=== PATIENT | male | born 1945 | race Caucasian/White ===

== ENCOUNTER → 2016-04-15 | Day surgery (SDC) | payer OTHER ==
[~2016-04-15] MED LIST: BUPIVACAINE/EPINEPHRINE 0.5% PF 30 ML VIAL ONE; LACTATED RINGER'S 1,000 ML BAG IV ONE; LIDOCAINE 1%/EPINEPHrine 1:100,000 SOLN 30 ML VIAL ONE; MIDAZOLAM HCL 2 MG/2 ML VIAL ONE; ONDANSETRON HCL 4 MG/2 ML VIAL IV PUSH ONE; PROPOFOL 200 MG/20 ML AMP IV ONE
--- NOTE | 2016-04-15 12:08 | TN ---
cc: PENNY LAMBERT M.D. DATE OF SURGERY: 04/15/2016 PREOPERATIVE DIAGNOSIS Right posterior neck mass, 3.5 to 4 cm. POSTOPERATIVE DIAGNOSIS Right posterior neck mass, 3.5 to 4 cm. PROCEDURE Excision of deep right posterior neck mass. ANESTHESIA TIVA. SURGEON Dr. Lambert INDICATION This is a pleasant 70-year-old gentleman who has a growing mass in the right posterior neck. Plans were made for excision. DETAILS OF PROCEDURE The patient was taken to the operating room and placed in supine position. After anesthesia his neck is prepped with Betadine. We make an elliptical incision measuring 4 x 2 cm to completely ellipse the skin and underlying mass, which appears to be a sebaceous cyst, out from the deep subcutaneous tissue getting the complete capsule out. We then use the electrocautery device to ensure hemostasis. The area in question is then closed with a interrupted 3-0 nylon suture. A sterile bandage is applied. The patient tolerated the procedure well and had no immediate post-op complication. Penny Lambert MD JDB/NORMAN /11:39 AM /12:04 PM MTDD
== END | disposition home or self-care (01) ==
LOC: ESDC 07:36
PROVIDERS: ATTEND Surgery
DX: L72.0 Epidermal cyst (principal)
CPT/HCPCS: 00300; 11424; 88304; J2250; J2405; J3010; J7120; 88305